=== PATIENT | female | born 1980 | race Two or more races ===

== ENCOUNTER 2016-06-21 12:37 | Emergency (ER) | payer SELFPAY ==
[~2016-06-21] VITALS: Ht 167.6 cm; Wt 58.1 kg
[2016-06-21] MEDS ORDERED: MORPHINE SULFATE INJ 4 MG/ML DISP.SYRIN ONE (15:06)
[2016-06-21] MEDS ORDERED: IV SET PRIMARY 1 EA INFUS.SET MC ONE ×2 (15:07→15:59)
[2016-06-21] MEDS ORDERED: IV NS 0.9% 1,000 ML ONE ×2 (15:07→15:59)
[2016-06-21] MEDS ORDERED: ONDANSETRON HCL/PF 4 MG/2 ML VIAL ONE (15:07)
[2016-06-21 15:13] LABS: BASOPHILS % (AUTO) 0.3 % (0.0-2.0); DIFF TOTAL % 100 %; EOSINOPHILS # (AUTO) 0.1 /CMM (0.0-0.7); EOSINOPHILS % (AUTO) 0.7 % (0.0-6.0); HEMATOCRIT 38 % (33-45); HEMOGLOBIN 12.7 g/dL (11.5-14.8); LYMPHOCYTES % (AUTO) 22.6 % (20.0-44.0); MEAN CORPUSCULAR HEMOGLOBIN 29 PG (26.0-33.0); MEAN CORPUSCULAR HGB CONC 34 g/dl (31.0-36.0); MEAN CORPUSCULAR VOLUME 85 fL (82-100); MONOCYTES # (AUTO) 0.4 /CMM (0.1-1.30); MONOCYTES % (AUTO) 4.5 % (2.0-12.0); NEUTROPHILS # (AUTO) 6.3 /CMM (1.8-8.9); NEUTROPHILS % (AUTO) 71.9 % (43.0-81.0); PLATELET COUNT (AUTO) 346 /CMM (150-450); RED BLOOD CELL COUNT(AUTO) 4.42 MIL/uL (4.0-5.2); WHITE BLOOD COUNT (AUTO) 8.8 K/uL (4.3-11.0)
[2016-06-21] MEDS ORDERED: LOPERAMIDE HCL (2 MG CAP) 2 MG CAPSULE PO ONE ×3 (15:16→15:30)
[2016-06-21 15:20] LABS: CALCIUM, SERUM 9.1 mg/dL (8.5-10.1); CREATININE 0.6 mg/dL (0.6-1.3); POTASSIUM 3.9 mmol/L (3.5-5.1)
[2016-06-21 15:26] LABS: ALBUMIN 4.2 g/dL (3.4-5.0); BILIRUBIN,DIRECT 0.1 mg/dL (0.0-0.2); BILIRUBIN,TOTAL 0.4 mg/dL (0.2-1.0); INDIRECT BILIRUBIN 0.3 mg/dL (0.0-1.1); TOTAL PROTEIN, SERUM 7.8 g/dL (6.4-8.2)
[2016-06-21] MEDS ORDERED: IV NS 0.9% 1,000 ML BAG IV ONE ×2 (15:30→16:00)
[2016-06-21] MEDS ORDERED: ONDANSETRON HCL/PF 4 MG/2 ML VIAL IVP ONE (15:30)
[2016-06-21] MEDS ORDERED: MORPHINE SULFATE INJ 2 MG/ML DISP.SYRIN IV ONE (15:30)
[2016-06-21 15:45] LABS: ADD UA MICROSCOPIC NO; KETONES,URINE Negative (NEGATIVE); LEUKOCYTE ESTERASE ,URINE Negative (NEGATIVE)
[2016-06-21 15:46] LABS: PREGNANCY TEST URINE QUAL NEGATIVE (NEGATIVE)
[2016-06-21] MEDS ORDERED: HYDROMORPHONE 1 MG/1 ML DISP.SYRIN ONE (15:58)
[2016-06-21] MEDS ORDERED: HYDROMORPHONE 1 MG/1 ML DISP.SYRIN IV ONE (16:00)
[2016-06-21 17:20] VITALS: BP 120/81
== END 2016-06-21 17:20 | disposition home or self-care (01) ==
LOC: ER 13:40
DX: R10.11 Right upper quadrant pain (principal); R19.7 Diarrhea, unspecified; E03.9 Hypothyroidism, unspecified; E27.40 Unspecified adrenocortical insufficiency; G89.4 Chronic pain syndrome; Z87.19 Personal history of other diseases of the digestive system; Z87.442 Personal history of urinary calculi; Z98.84 Bariatric surgery status; Z88.8 Allergy status to other drugs, medicaments and biological substances
CPT/HCPCS: 36415; 74176; 80048; 80076; 81001; 83690; 84703; 85025; 96361; 96374; 96375; 99285; A4606; J1170; J2270; J2405; J7030 ×2; Z7610; 81000-TC

== ENCOUNTER 2016-08-24 21:37 | Emergency (ER) | payer MEDICAID ==
[~2016-08-24] VITALS: Ht 167.6 cm; Wt 60.3 kg
[2016-08-24 22:07] VITALS: BP 100/75
--- NOTE | 2016-08-24 22:35 | NUR ---
PT STATES "I MAY LEAVE AND COME BACK IF I HAVE TO". TITA ANY NEW OR WORSENING SX'S
--- NOTE | 2016-08-24 23:00 | NUR ---
NOT IN LOBBY WHEN CALLED FOR ROOM ASSIGNMENT
--- NOTE | 2016-08-25 00:58 | NUR ---
CALLED FOR ROOM ASSIGNMENT ONE MORE TIME; INFORMED PT LEFT
== END 2016-08-25 01:01 | disposition left against medical advice (07) ==
LOC: ER 21:37
DX: Z53.21 Procedure and treatment not carried out due to patient leaving prior to being seen by health care provider (principal)
CPT/HCPCS: A4606; Z7610

== ENCOUNTER 2016-11-27 22:30 | Inpatient (IN) | payer MEDICAID, OTHER ==
[~2016-11-27] VITALS: Ht 167.6 cm; Wt 71.8 kg
[2016-11-27] MEDS ORDERED: HYDROMORPHONE HCL 2 MG TABLET PO PRN (23:00)
[2016-11-27] MEDS ORDERED: LORAZEPAM 1 MG TABLET PO ONE (23:00)
[2016-11-27] MEDS ORDERED: ONDANSETRON 4 MG TAB.RAPDIS SL ONE (23:00)
[2016-11-27] MEDS ORDERED: HYDROMORPHONE HCL 2 MG TABLET ONE (23:04)
[2016-11-27] MEDS ORDERED: LORAZEPAM 1 MG TABLET ONE (23:04)
[2016-11-27] MEDS ORDERED: ONDANSETRON 4 MG TAB.RAPDIS ONE (23:05)
[2016-11-28] MEDS ORDERED: HYDROMORPHONE HCL 2 MG TABLET PO PRN ×3 (00:30→03:45)
[2016-11-28] MEDS ORDERED: oxyCODONE/APAP (5/325 MG) 1 UDTAB TABLET PO ONE (00:30)
[2016-11-28] MEDS ORDERED: oxyCODONE/APAP (5/325 MG) 1 UDTAB TABLET ONE (00:43)
[2016-11-28] MEDS ORDERED: ONDANSETRON HCL/PF 4 MG/2 ML VIAL IVP PRN ×2 (03:00→03:45)
[2016-11-28] MEDS ORDERED: HYDROCODONE/APAP 5/325MG 1 EACH TABLET PO PRN ×2 (03:00→03:45)
[2016-11-28] MEDS ORDERED: ACETAMINOPHEN 325 MG TABLET PO PRN ×2 (03:00→03:45)
[2016-11-28] MEDS ORDERED: MAG HYDROX/AL HYDROX/SIMETH 30 ML UDC PO PRN ×2 (03:00→03:45)
[2016-11-28] MEDS ORDERED: MAGNESIUM HYDROXIDE 30 ML UDC PO PRN ×2 (03:00→03:45)
[2016-11-28] MEDS ORDERED: ZOLPIDEM TARTRATE 5 MG TABLET PO PRN ×2 (03:00→03:45)
[2016-11-28] MEDS ORDERED: Z GUARD REMEDY 2 OZ OINT TP PRN ×2 (03:00→03:45)
[2016-11-28 03:40] VITALS: BP 93/67
[2016-11-28 03:45] VITALS: BP 103/72
[2016-11-28] MEDS ORDERED: OXYC-164 PO (05:05)
[2016-11-28] MEDS ORDERED: HYDR-3658 PO (05:05)
[2016-11-28] MEDS ORDERED: TRAM50TA2 PO (05:05)
[2016-11-28] MEDS ORDERED: BUPR1PAT3 TD (05:05)
[2016-11-28] MEDS ORDERED: LORA1TAB PO (05:05)
[2016-11-28 07:06] VITALS: BP 94/56
[2016-11-28] MEDS ORDERED: IV 1/2NS 1000 ML 1,000 ML IV PRN ×2 (09:00→09:30)
[2016-11-28 09:14] LABS: BASOPHILS % (AUTO) 0.3 % (0.0-2.0); EOSINOPHILS # (AUTO) 0.1 /CMM (0.0-0.7); EOSINOPHILS % (AUTO) 0.8 % (0.0-6.0); HEMATOCRIT 34 % (33-45); HEMOGLOBIN 11.4 g/dL (11.5-14.8); LYMPHOCYTES # (AUTO) 2.5 /CMM (0.8-4.8); LYMPHOCYTES % (AUTO) 34.7 % (20.0-44.0); MEAN CORPUSCULAR HEMOGLOBIN 30 PG (26.0-33.0); MEAN CORPUSCULAR HGB CONC 34 g/dl (31.0-36.0); MEAN CORPUSCULAR VOLUME 90 fL (82-100); MONOCYTES # (AUTO) 0.4 /CMM (0.1-1.30); MONOCYTES % (AUTO) 5.7 % (2.0-12.0); NEUTROPHILS # (AUTO) 4.3 /CMM (1.8-8.9); NEUTROPHILS % (AUTO) 58.5 % (43.0-81.0); PLATELET COUNT (AUTO) 256 /CMM (150-450); RDW COEFFICIENT OF VARIATION 13.3 (11.5-15.0); RED BLOOD CELL COUNT(AUTO) 3.77 MIL/uL (4.0-5.2); WHITE BLOOD COUNT (AUTO) 7.3 K/uL (4.3-11.0)
[2016-11-28 09:24] LABS: ALBUMIN 3.4 g/dL (3.4-5.0); BILIRUBIN,TOTAL 0.4 mg/dL (0.2-1.0); CALCIUM, SERUM 8.7 mg/dL (8.5-10.1); CREATININE 0.6 mg/dL (0.6-1.3); POTASSIUM 4.2 mmol/L (3.5-5.1); TOTAL PROTEIN, SERUM 6.4 g/dL (6.4-8.2)
[2016-11-28] MEDS ORDERED: IBUPROFEN 600 MG TABLET PO PRN (09:30)
[2016-11-28] MEDS ORDERED: diphenhydrAMINE HCL ELIX 25 MG/10 ML UDC PO PRN (15:00)
[2016-11-28] MEDS ORDERED: diphenhydrAMINE HCL 25 MG CAPSULE PO PRN (15:00)
== END 2016-11-28 16:38 | disposition home or self-care (01) | DRG 54 ==
LOC: ER 22:31 → TELE 11-28 03:49
PROVIDERS: ADMIT Family Medicine; ATTEND Internal Medicine
DX: G43.909 Migraine, unspecified, not intractable, without status migrainosus (principal); E27.1 Primary adrenocortical insufficiency; K25.9 Gastric ulcer, unspecified as acute or chronic, without hemorrhage or perforation; E03.9 Hypothyroidism, unspecified; G89.4 Chronic pain syndrome; Z87.11 Personal history of peptic ulcer disease; Z87.442 Personal history of urinary calculi; Z98.84 Bariatric surgery status
CPT/HCPCS: 36415; 80053-TC; 85025-TC; 87081-TC; A4606; J2405; J3490; Q0162; Q0163; Z7610

== ENCOUNTER 2017-08-28 21:20 | Emergency (ER) | payer SELFPAY ==
[~2017-08-28] VITALS: Ht 167.6 cm; Wt 92.1 kg
[~2017-08-28 21:20] MED LIST: BUPR1PAT3 TD; HYDR-3980 PO; LORA1TAB PO; OXYC-454 PO; TRAM50TA2 PO
--- NOTE | 2017-08-28 21:45 | NUR ---
CLARK 878 FROM HOME C/O HEADACHE. PT STATES SHE WAS AT URGENT CARE AND WAS ADMIN BENADRYL 25MG IV, TORADOL 30 IV, DIAZEPAM 5MG IV, ZOFRAN 4MG IV AT 2018 "WITHOUT RELIEF". PT IS AAOX4. -N/V/D. -DIZZINESS. SKIN WNL. VSS. RESP EVEN AND UNLABORED. NO S/S OF ACUTE DISTRESS NOTED. PT PLACED IN GOWN AND ON MONITOR AND POX. PT SAFETY AND COMFORT MEASURES IN PLACE. AWAITING MD FOR EVAL.
--- NOTE | 2017-08-28 22:09 | NUR ---
bedside for eval
[2017-08-28] MEDS ORDERED: HYDROMORPHONE INJ 2 MG/ML DISP.SYRIN IM ONE (22:30)
[2017-08-28] MEDS ORDERED: IV NS 0.9% 1,000 ML BAG IV ONE ×2 (22:30)
[2017-08-28] MEDS ORDERED: ONDANSETRON 4 MG TAB.RAPDIS PO ONE (22:30)
[2017-08-28] MEDS ORDERED: ONDANSETRON HCL/PF 4 MG/2 ML VIAL ONE (22:37)
[2017-08-28] MEDS ORDERED: HYDROMORPHONE INJ 0.5 MG/0.5 ML SYRINGE ONE (22:38)
[2017-08-28] MEDS ORDERED: HYDROMORPHONE 1 MG/1 ML DISP.SYRIN IV ONE (23:00)
[2017-08-28] MEDS ORDERED: ONDANSETRON HCL/PF 4 MG/2 ML VIAL IV ONE (23:00)
--- NOTE | 2017-08-28 23:25 | NUR ---
PHLEBOTOMY BEDSIDE FOR BLOOD DRAW
[2017-08-29] MEDS ORDERED: HYDROCODONE/APAP 10/325MG 1 EA TABLET ONE (01:05)
--- NOTE | 2017-08-29 01:22 | NUR ---
Patient discharged to home in stable condition. Written and verbal after care instructions along with RX given. Patient verbalizes understanding of instruction.IV removed. Catheter intact and site benign. Pressure and 4x4 applied to site. No bleeding noted. VSS upon discharge
[2017-08-29 01:26] VITALS: BP 124/66
[2017-08-29] MEDS ORDERED: HYDROCODONE/APAP 10/325MG 1 EA TABLET PO ONE (01:30)
== END 2017-08-29 01:27 | disposition home or self-care (01) ==
LOC: ER 21:23
DX: S09.8XXA Other specified injuries of head, initial encounter (principal); G43.909 Migraine, unspecified, not intractable, without status migrainosus; E03.9 Hypothyroidism, unspecified; G89.4 Chronic pain syndrome; Z87.19 Personal history of other diseases of the digestive system; Z87.442 Personal history of urinary calculi; Z98.84 Bariatric surgery status; Z88.8 Allergy status to other drugs, medicaments and biological substances; W01.0XXA Fall on same level from slipping, tripping and stumbling without subsequent striking against object, initial encounter; Y93.89 Activity, other specified; Y92.89 Other specified places as the place of occurrence of the external cause; Y99.8 Other external cause status
CPT/HCPCS: 36415; 70450-TC; 84703-TC; A4606; J2405; J7030; Z7610